=== PATIENT | female | born 1990 | race Caucasian/White ===

== ENCOUNTER 2020-04-15 09:17 | Emergency (ER) | payer OTHER, SELFPAY ==
[2020-04-15 09:18] VITALS: BP 131/88; PULSE 80; RESP 16; TEMP 36.2; BMI 28.3
[2020-04-15 09:20] VITALS: BP 131/88; PULSE 80; RESP 16; TEMP 36.2; O2SAT 98
[2020-04-15 09:38] LABS: Mucous, Urine 0 SEEN /hpf (<or=2+); White Blood Cells 0 SEEN /hpf (0-5)
[2020-04-15 09:39] LABS: Color, Urine Yellow (Yellow); Glucose, Dipstick Normal (Normal); Ketone-Dipstick Negative (Negative); Leukocyte Esterase-Dipstick 25 /ul (Negative); Nitrite-Dipstick Negative (Negative); Occult Blood-Urine 250 /ul (Negative); Protein-Dipstick 15 mg/dl (Negative); Urine Bilirubin Dipstick Negative (Negative); Urine Clarity Sl. Cloudy (Clear); Urine Urobilinogen 1 mg/dl (Normal)
[2020-04-15 09:42] LABS: Internal QC Validated? YES +Cl - CLEAR BKGD; Pregnancy, Urine Negative Negative
[2020-04-15 09:47] LABS: Bacteria 1+ /hpf (None Seen); Red Blood Cells-Urine 5-10 SEEN /hpf (0-5); Squamous Epithelial Cells - UA 0-5 SEEN /hpf (5-10)
--- NOTE | 2020-04-15 09:59 | ED.DCSUM_ITS ---
History of Present Illness Chief Complaint: Female C/O Informant: Patient Pain: Vaginal Pain Onset: Days Context: Gradual Onset Timing: Continuous Quality: Burning - Vaginal Discharge Onset: Days Quality: Thick Associated Symptoms: Frequency Narrative: Patient is a 29-year-old female with no significant past medical history presenting with increased frequency of urination and abnormal vaginal discharge. Patient states she has had the symptoms for the past 3 to 4 days. She notes she had a new sexual partner 1.5 weeks ago. She is concerned she possibly could have a sexually-transmitted infection. She not aware of a known exposure however. She states she is also been having some fatigue and lower back discomfort. She does have a Mirena so she does not have periods however she notes she is had some thick dark vaginal discharge the past few days. She now has some vaginal irritation. She denies any dysuria or hematuria. She denies any other complaints at this time. Past Medical History - Allergies and Home Meds Allergies/Adverse Reactions: Allergies ibuprofen Adverse Reaction (Verified 04/15/20 09:21) Hives Smoking Status: Current every day smoker Review of Systems General: Denies: Chills, Fever, Sweats Eyes: Denies: Visual changes - bilaterally, Diplopia ENT: Denies: Rhinorrhea, Sore throat Cardiovascular: Denies: Chest pain, Palpitations Respiratory: Denies: Dyspnea, Cough, Dyspnea on exertion Gastrointestinal: Denies: Abdominal pain, Nausea, Vomiting, Diarrhea, Melena, Hematochezia Genitourinary: Reports: Frequency, - - Vaginal discharge, irritation . Denies: Dysuria, Hematuria Musculoskeletal: Reports: Back pain - low back. Denies: Extremity Pain Skin: Denies: Rash, Wounds Neurological: Denies: Headache, Weakness, Numbness Physical Exam Vital Signs/Narrative: Vital Signs Temp Pulse Resp BP Pulse Ox 04/15/20 09:20 97.2 F L 80 16 131/88 H 98 04/15/20 09:18 97.2 F L 80 16 131/88 H Inital Vital Signs reviewed: Yes General: Well nourished, Well developed Head: Normocephalic, Atraumatic Eyes: Perrl, EOMI ENT: Moist mucous membranes, No rhinorrhea Neck: Supple, Nontender Cardiovascular: Regular rate, Regular rhythm, No murmurs Respiratory: No distress, CTA bilaterally, Chest nontender Abdomen: Soft, Nontender, Nondistended, Normal bowel sounds : Speculum exam: Normal external genitalia, No vaginal lesions, No vaginal discharge, Old blood, - - Mirena strings visualized Bimanual exam: No cervical motion tenderness, Os closed, Normal size uterus, Nontender uterus, Nontender adnexa, bilat Back: Nontender, Normal Inspection Extremities: Nontender, No edema Skin: Normal color, No rash Neurological: Alert, Oriented x3, Cranial nerves II-XII grossly intact, Normal Strength, Normal Sensation Psychological: Normal affect Diagnostic/Tx/Re-eval Laboratory Data 04/15/20 04/15/20 04/15/20 09:35 09:35 10:10 Urine Color Yellow Urine Clarity Sl. Cloudy Urine pH 7.0 Ur Specific [place] 1.010 Urine Protein 15 H Urine Glucose (UA) Normal Urine Ketones Negative Urine Occult Blood 250 H Urine Nitrite Negative Urine Bilirubin Negative Urine Urobilinogen 1 H Ur Leukocyte Esterase 25 H Urine RBC 5-10 SEEN Urine WBC 0 SEEN Ur Squamous Epith Cells 0-5 SEEN Urine Bacteria 1+ Urine Mucus 0 SEEN Urine Test Negative Chlam trachomat DNA PCR Negative N.gonorrhoeae DNA (PCR) Negative - Medical Decision/Diagnostic Studies GC and Chlamydia cultures sent: Yes Patient is evaluated for urinary symptoms as well as brown vaginal discharge. She is concerned she has an STD as she had a recent new sexual partner. On pelvic exam her discharge is consistent with old blood. She does not have any cervical motion tenderness, adnexal tenderness or other findings concerning for PID, tubo-ovarian abscess or STI. I do not think she requires empiric treatment. Urinalysis is equivocal with 1+ bacteria. She is placed on 3-day course of Keflex she is having symptoms and has some lower back discomfort. I do question if she could just be having some breakthrough bleeding or small amount of cervical irritation associated with intercourse. Patient will follow- up with her MARKETING COMMUNICATIONS ASSISTANT. Patient is counseled on signs and symptoms requiring return to the emergency room. Patient verbalizes agreement and understand this plan. Patient discharged home in stable and improved condition. ED Disposition - Plan for ED Patient: Disposition: Home or Assisted Living Diagnosis: Vaginal discharge, UTI (urinary tract infection) Instructions: ED CYSTITIS Female Adult Prescriptions: Cephalexin [Keflex] 500 mg PO BID #6 cap Transmission Status: Received by [facility]/pharmacy #[id number] Additional Instructions: The discharge appears to be old blood. I do not see discharge concerning for STD at this time. Your swabs are pending and you will be called if you have a positive result for gonorrhea, chlamydia or trichomonas. You are placed on antibiotics for UTI. Please follow-up with your MARKETING COMMUNICATIONS ASSISTANT.
[2020-04-15 12:14] LABS: Chlamydia Trachomatis by PCR Negative (Negative); Neisserai gonorrhoeae by PCR Negative (Negative); Probe Check PASS; Sample Adequacy Control PASS; Specimen Processing Control PASS
== END 2020-04-15 10:49 | disposition home or self-care (01) ==
PROVIDERS: Emergency Provider Emergency Medicine
DX: N89.8 Other specified noninflammatory disorders of vagina (principal); N39.0 Urinary tract infection, site not specified; F17.200 Nicotine dependence, unspecified, uncomplicated
CPT/HCPCS: 81001; 81025; 87210; 87491; 87591; 99282